=== PATIENT | female | born 1950 | race Caucasian/White ===

== ENCOUNTER 2017-07-06 14:59 | Emergency (ER) | payer OTHER ==
[~2017-07-06] VITALS: Ht 160 cm; Wt 67.7 kg
[~2017-07-06 14:59] MED LIST: ACTOS30 MG PO; FENOFIBRATE145 M1 PO; GLIPIZIDE10 MG PO; JANUVIA25 M1 PO; LITE COAT ASPI325 M1 PO; PANTOPRAZOLE SO40 MG PO; SPIRIVA1 INHALATI IH; VALSARTAN-HCTZ1 EAC4 PO; VENTOLIN HFA18 GM IH
[2017-07-06 16:28] LABS: HEMATOCRIT 43.7 % (36.0-46.0); HEMOGLOBIN 15.4 G/DL (11.9-15.5); MCH 29.9 PG (29.0-34.0); MCHC 35.2 G/DL (30.0-36.0); MCV 84.9 FL (83-99); PLATELET COUNT 256 K/uL (156-360); RBC DIS.WIDTH-CV 13.3 % (11.8-14.6); RBC DIS.WIDTH-SD 41.6 % (39-53); RED BLOOD COUNT 5.15 M/uL (3.80-5.20); WHITE BLOOD COUNT 9.4 K/uL (4.1-10.2)
[2017-07-06 16:38] LABS: CHLORIDE 100 mEq/L (99-109); POTASSIUM 3.9 mEq/L (3.7-5.4); SODIUM 133 mEq/L (136-147)
[2017-07-06 16:39] LABS: GLUCOSE 113 mg/dL (70-99)
[2017-07-06 16:43] LABS: CREATININE 0.9 mg/dL (0.6-1.3); GFR ESTIMATE (CALCULATED) > 59 mL/min/
[2017-07-06 16:44] LABS: UREA NITROGEN (BUN) 12 mg/dL (9-23)
[2017-07-06 16:49] LABS: TROP-I INTERPRETATION NEGATIVE; TROPONIN-I < 0.01 ng/mL (0.0-0.30)
[2017-07-06 17:53] VITALS: BP 136/59
== END 2017-07-06 18:07 | disposition home or self-care (01) ==
LOC: EME 14:59
PROVIDERS: Emergency Medicine
DX: R07.9 Chest pain, unspecified (principal); J44.9 Chronic obstructive pulmonary disease, unspecified; I10 Essential (primary) hypertension; E78.5 Hyperlipidemia, unspecified; E11.9 Type 2 diabetes mellitus without complications; F17.200 Nicotine dependence, unspecified, uncomplicated; Z90.49 Acquired absence of other specified parts of digestive tract; Z79.82 Long term (current) use of aspirin; Z88.0 Allergy status to penicillin
CPT/HCPCS: 71046; 80048; 83880; 84484; 85027; 93005; 99281; 99284